=== PATIENT | female | born 1970 | race Caucasian/White ===

== ENCOUNTER 2024-03-24 14:00 | Outpatient (REF) | payer OTHER, SELFPAY ==
--- NOTE | ~2024-03-24 | US_ITS ---
EXAMINATION: US DIAGNOSTIC ULTRASOUND BREAST, RIGHT CLINICAL INFORMATION: 6 month Follow-up oval hypoechoic probably benign circumscribed mass right breast 11:00 axis, 13 cm from the nipple. COMPARISON: RIGHT BREAST ULTRASOUND: 07/28/2023, 01/12/2023, 07/10/2022 (BI-RADS 0). Mammography: 04/24/2023, 11/13/2021, 10/31/2021. TECHNIQUE: Ultrasound of the right breast is performed with real-time dempsey scale imaging and color Doppler. Attention was given to the 11:00 axis lesion 13 cm from the nipple. FINDINGS: There is once again a near anechoic oval circumscribed small mass, wider than tall, situated within a dense Matheus's ligament region, no posterior enhancement or shadowing, no internal color Doppler flow, measuring approximately 6 x 3 x 6 mm. This is unchanged in morphology and characteristics since 07/10/2022. It is slightly smaller in size, previously measuring 7 x 3 x 7 mm. Visually it also appears smaller in size. This finding is benign, and likely represents a tiny fibroadenoma. No further follow-up recommended given decrease in size overall. Results were provided to the patient at time of visit by the technologist. US/US breast RT limited mamm only IMPRESSION: Oval mass being followed at the 11:00 axis of the right breast is slightly smaller and otherwise entirely unchanged. This is a benign finding most likely related to a small fibroadenoma. No further follow-up recommended. Recommend the patient resume routine annual screening mammography. ASSESSMENT: BI-RADS 2 - Benign Findings RECOMMENDATION: 1 year F/U This patient's information was entered into a reminder system with a target due date for their next mammogram.
== END 2024-03-24 14:01 | disposition home or self-care (01) ==
LOC: HO.MAMMO 14:00
PROVIDERS: PCP Nurse Practitioner Family; Visit Provider Obstetrics & Gynecology
DX: N63.11 Unspecified lump in the right breast, upper outer quadrant (principal)
CPT/HCPCS: 76642

== ENCOUNTER → 2024-03-24 14:30 | Outpatient (BNV) | payer OTHER, SELFPAY | PROVIDERS: PCP Nurse Practitioner Family; Visit Provider Radiology Diagnostic Radiology | DX: N63.11 Unspecified lump in the right breast, upper outer quadrant (principal) | CPT/HCPCS: 76642 ==

== ENCOUNTER 2024-05-17 09:32 | Emergency (ER) | payer OTHER, SELFPAY ==
[2024-05-17 09:50] VITALS: BP 123/81; PULSE 82; RESP 16; TEMP 36.8; O2SAT 98; BMI 33.3
[2024-05-17 10:12] LABS: Appearance Urine Clear; Color Urine Yellow; Glucose Urine UA Negative (Negative); Leukocyte Esterase Urine Small (1+) (Negative); Nitrite Urine Negative (Negative); Specific Gravity - Urine <= 1.005 (1.005-1.025); UMIC TRIGGER UACC YES; Urine Blood Small (1+) (Negative); Urine Ketones Negative (Negative); Urine Protein Negative (Neg-Trace)
[2024-05-17 10:39] LABS: Bacteria Urine None Seen (None Seen); Hyaline Casts Urine 0-2 /LPF (0-2); Squamous Epithelial Cell Urine 0-2 /HPF (0-2); UACC Culture Trigger YES; WBC Urine 21-50 /HPF (0-5)
--- NOTE | 2024-05-17 10:51 | ED_ITS ---
HPI - Female Genitourinary General Chief complaint: Urogenital-Female Stated complaint: UTI? Time Seen by Provider: 05/17/24 10:01 Source: patient and RN notes reviewed Mode of arrival: ambulatory Limitations: no limitations History of Present Illness ED Provider: Pretty Elias PA-C HPI Narrative: This is a 53-year-old female, with no known medical problems, who presents emergency department with complaints of suprapubic pressure after urination, and urinary frequency and urgency for the last 2 days. Patient states that she noticed her symptoms 2 days ago however states that yesterday she had the day off and felt like her symptoms have resolved. She states that this morning she awoke with the same suprapubic pressure, frequency and urgency. She denies any fevers, chills, chest pain, shortness breath, nausea, vomiting, or diarrhea. No unusual vaginal discharge or bleeding. No back pain. She is not concerned for any sexually transmitted infections. She states that she had a urinary tract infection about 1 year ago and states that her symptoms feel similar. No other complaints or concerns at this time. MD elicited complaint: dysuria and UTI Onset (ago): day(s) Severity: moderate Female Urogenital Radiation: Suprapubic Consistency: intermittent Vaginal discharge: none Vaginal bleeding: none Urinary symptoms: Dysuria, Urgency, Frequency and Foul Smelling Urine Exacerbating factors: urination Relieving factors: none Associated symptoms: denies other symptoms Treatment prior to arrival: none Sexual activity: No Patient : No Related Data Previous Rx's ?Medication ?Instructions ?Recorded cefuroxime axetil 500 mg tablet 500 mg PO BID 7 days #13 tabs 05/17/24 phenazopyridine 200 mg tablet 200 mg PO TID 5 doses #5 tabs 05/17/24 Allergies Allergy/AdvReac Type Severity Reaction Status Date / Time latex Allergy Anaphylaxis Verified 05/17/24 09:53 morphine Allergy Vomiting Verified 05/17/24 09:53 Review of Systems Review of Systems: Yes all other systems are reviewed and are negative Constitutional: Constitutional: Reports as per [facility] Social History Social History Advance Directives: No Physical Exam Vital Signs: Vital Signs: Last Vital Signs Temp 98.2 F 05/17/24 11:20 Pulse 82 05/17/24 11:20 Resp 18 05/17/24 11:20 BP 123/81 05/17/24 11:20 Pulse Ox 98 05/17/24 09:50 O2 Del Method Room Air 05/17/24 09:50 O2 Flow Rate 98 05/17/24 11:20 BMI result Body Mass Index 33.3 Const: General: cooperative, comfortable and no acute distress Orientation/consciousness: patient oriented x3 Limitations: no limitations HEENT: Head: Yes normal to inspection, Yes normocephalic and Yes atraumatic Ears: hearing grossly normal bilaterally General nose exam: Normal external nose present Face and sinus: Yes normal facial exam Mouth: Normal oral and palatal mucosa present, oropharynx normal and moist mucous membranes Throat: Yes posterior oropharynx normal Eyes: General: appearance normal, both eyes and all related structures Eyelids: Yes eyelids normal Conjunctivae: conjunctivae normal Sclerae: sclerae normal Pupils: Equal, round and reactive pupils present EOM: EOMs intact bilaterally Neck: Neck: Yes normal visual inspection, Yes full ROM and Yes no lymphadenopathy Lymphatic: no lymphadenopathy noted Chest: Chest palpation & inspection: normal inspection of the chest Resp: Effort & Inspection: normal respiratory effort and able to speak in complete sentences Auscultation: clear to auscultation bilaterally, no crackles, no rales, no rhonchi and no wheezes Cardio: Rate: regular rate Rhythm: regular rhythm Heart sounds: S1 normal heart sound present and S2 normal heart sound present GI: Inspection: Yes normal to inspection : Other: Abdomen is soft, nontender, nondistended General: Yes no CVA tenderness Back/Spine/Pelvis: Back: no CVA tenderness Skin: General skin exam: no rashes or lesions noted Trauma: no lacerations or abrasions Wounds: no wounds Neuro: General: patient oriented x3 and moves all extremities Cranial nerves: Yes Equal, round and reactive pupils present Extrem: General: Yes normal to inspection Right upper extremity: normal to inspection Left upper extremity: normal to inspection Right lower extremity: normal to inspection Left lower extremity: normal to inspection Medications Administered Discontinued Medications Generic Name Dose Route Start Last Admin Trade Name Freq PRN Reason Stop Dose Admin Cefuroxime Axetil 500 mg 05/17/24 11:04 05/17/24 11:16 Cefuroxime Axetil 500 Mg Tablet PO 05/17/24 11:05 500 mg ONCE ONE Administration Phenazopyridine HCl 200 mg 05/17/24 11:04 05/17/24 11:16 Phenazopyridine Hcl 200 Mg Tablet PO 05/17/24 11:05 200 mg ONCE ONE Administration Medical Decision Making Medical Decision Making [facility] Narrative: This is a 53-year-old female who presents emergency department with complaints of dysuria, frequency and urgency for the last 2 days. On arrival, vital signs within normal limits. She is nontoxic appearing and speaking in full sentences. She is neurologically intact. Differential diagnoses include urinary tract infection, pyelonephritis, obstructive uropathy, vaginitis-unlikely. Urine was collected, revealing small blood, small leuk esterases, wbc's, symptoms and urine appears to be infected consistent with a urinary tract infection. Discussed findings with patient. Given she has no CVA tenderness, and otherwise is feeling well, no further workup indicated at this time, will treat as urinary tract infection with cefuroxime and Pyridium. Given strict return precautions. She understands and agrees with plan. Patient stable for discharge. Differential Diagnosis Differential Diagnoses: The differential diagnosis associated with the presentation includes See above Lab Data MDM Lab Attestation statement: I reviewed the patient's lab results. Small blood, small leuk esterases, 21-50 urine wbc's consistent with UTI Labs: Lab Results 05/17/24 Range/Units 10:00 Urine Color Yellow Urine Appearance Clear Urine pH 7.0 (5.0-9.0) Ur Specific [place] <= 1.005 (1.005-1.025) Urine Protein Negative (Neg-Trace) mg/dL Urine Glucose (UA) Negative (Negative) mg/dL Urine Ketones Negative (Negative) mg/dL Urine Blood Small (1+) H (Negative) Urine Nitrite Negative (Negative) Ur Leukocyte Esterase Small (1+) H (Negative) Urine RBC 3-5 H (0-2) /HPF Urine WBC 21-50 H (0-5) /HPF Ur Squamous Epith Cells 0-2 (0-2) /HPF Urine Bacteria None Seen (None Seen) Hyaline Casts 0-2 (0-2) /LPF Discharge Plan Discharge Clinical Impression: Urinary tract infection Patient Disposition: Home, Self-Care Instructions: Urinary Tract Infection in Women (ED) Additional Instructions: You were seen in the emergency department due to urinary symptoms. Your urine appears to be infected, please take prescribed antibiotic as directed. We gave you your 1st dose in the department today. I also gave you a dose of Pyridium. Please be advised that Pyridium can cause your urine to be bright orange. This is a normal side effect. Drink plenty of fluids get plenty of rest. We are sending your urine out for further testing, please be advised that we may need to call you to switch your antibiotic. If any new or worsening symptoms occur including but not limited to chest pain, shortness of breath, severe abdominal pain, fevers, chills, back pain, please return for re-evaluation. Prescriptions: New cefuroxime axetil 500 mg tablet 500 mg PO BID 7 Days Qty: 13 0RF phenazopyridine 200 mg tablet 200 mg PO TID Qty: 5 0RF Interventions: ED Discharge Assessment Last Done: 05/17/24 11:20 Discharge Date/Time: 05/17/24 11:21 Print Language: French
[2024-05-17] MEDS: cefuroxime axetiL 500 MG TABLET PO (11:16)
[2024-05-17] MEDS: Phenazopyridine HCL 200 MG TABLET PO (11:16)
[2024-05-17 11:20] VITALS: BP 123/81; PULSE 82; RESP 18; TEMP 36.8
== END 2024-05-17 11:21 | disposition home or self-care (01) ==
PROVIDERS: Emergency Provider Emergency Medicine; PCP Nurse Practitioner Family
DX: N39.0 Urinary tract infection, site not specified (principal); R35.0 Frequency of micturition; R30.0 Dysuria; Z79.899 Other long term (current) drug therapy
CPT/HCPCS: 81001; 87086; 87088; 87186; 99283

== ENCOUNTER 2025-07-31 09:51 | Outpatient (AMB) | payer OTHER, SELFPAY ==
--- OUTSIDE RECORDS SUMMARY | 2025-07-31 09:59 | XMS_ITS | Clinical Summary ---
Author Organization [facility] Address [address] [place] [id number] Phone Care Team Providers Care Electrical Accessories Assembler Name Role Phone Bettina Lutz NP Primary Care Provider [phone] Allergies Active Allergy Reactions Criticality Noted Date Comments Latex Anaphylaxis,Hives,Shortness Of Breath High 06/18/2020 Medications No known medications Active Problems Problem Noted Date Diagnosed Date Women's annual routine gynecological examination 06/18/2020 Surveillance of intrauterine contraception 06/18 Family History Medical History Relation Comments Lung cancer Father Lung cancer Maternal Grandfather Glaucoma Maternal Grandmother Lung cancer Maternal Grandmother Glaucoma Mother Lung cancer Mother Alzheimer's disease Paternal Grandmother Diabetes Paternal Grandmother Breast cancer Sister Glaucoma Sister Hypertension Sister Relation Status Comments Father Maternal Grandfather Maternal Grandmother Mother Paternal Grandfather Other Ruptured AA A Paternal Grandmother Sister Other Masectomy Social History Tobacco Use Types Packs/Day Years Used Date Smoking Tobacco: Never Smokeless Tobacco: Never Alcohol Use Standard Drinks/Week Comments Yes 2 (1 standard drink = 0.6 oz pur e alcohol) Education Answer Date Recorded Are you interested in more education? Not on barbara e 02/13/2023 Are you concerned about learning? Not on file 02/13/2023 No 02/13/2023 No 02/13/2023 Digital Access Answer Date Recorded No 03/17/2023 No 03/17/2023 Reliable internet access at home? Not on file 03/17/2023 Device with a working camera? Not on file Comments No Sex and Gender Information Value Date Recorded Sex Assigned at Not on file Legal Sex Female 2:20 PM EDT Gender Identity Not on file Sexual Orientation Not on file Last Filed Vital Signs Vital Sign Reading Time Taken Comments Blood Pressure 118/80 06/18/2020 10:42 AM EDT Pulse - - Temperature - - Respiratory Rate - - Oxygen Saturation - - Inhaled Oxygen Concentration - - Weight 84.4 kg (186 lb) 06/18/2020 10:42 AM EDT Height 160 cm (5' 3 ) 06/18/2020 10:42 AM EDT Body Mass Index 32.95 06/18/2020 10:42 AM EDT Plan of Treatment Health Maintenance Due Date Last Done Comments Adult Td,Tdap Booster 1972 LIPID PANEL 1972 DEPRESSION SCREENING 1984 HEPATITIS C SCREENING 1990 HIV ONE-TIME SCREENING (18-6 5 YEARS) 1990 SMOKING STATUS SCREENING (On ce After 26 Yrs) 1998 MAMMOGRAM 2012 COLOGUARD 2017 COLONOSCOPY 2017 COLORECTAL CANCER SCREENING 2017 FIT TEST 2017 FOBT 2017 SIGMOIDOSCOPY 2017 VIRTUAL COLONOSCOPY 2017 PNEUMOCOCCAL VACCINES (50+ years) (1 of 1 - PCV) 2022 ZOSTER VACCINES (1 of 2) 2022 PAP SMEAR 06/18/2023 06/18/2020, 06/18/2020 INFLUENZA VACCINE (#1) 2025 08/15/2020 COVID-19 VACCINE (1 - 2023-2 5 season) 2025 HEPATITIS A VACCINES Aged Out No long er eligible based on patient's age to complete this topic HIB VACCINES Aged Out No longer eligi ble based on patient's age to complete this topic MENINGOCOCCAL VACCINES (ACWY) Aged Out No longer eligible based on patient's age to complete this topic MENINGOCOCCAL VACCINES (B) Aged Out N o longer eligible based on patient's age to complete this topic Medical Devices Not on file Procedures Procedure Name Priority Date/Time Associated Diagnosis Comments PAP TEST Routine 06/18/2020 12:00 AM EDT from Last 3 Months or Most Recently Relevant to Health Maintenance Results * Pap Smear (06/18/2020 12:00 AM EDT) 06/18/2020 06/19/2020 9:4 9 AM EDT Narrative SEE NARRATIVE - 06/26/2020 4:23 PM EDT [address] [address] Hydraulic Press Operator: Caroline Palencia MD MINERAL SURVEYOR Cytology Report FINAL DIAGNOSIS A. PAP SMEAR (SUREPATH) CE: SPECIMEN ADEQUACY: Satisfactory for evaluation; transformation zone present. INTERPRETATION: NEGATIVE FOR INTRAEPITHELIAL LESION OR MALIGNANCY. Endometrial cells are present in a woman 45 years of age or older. Endometrial cells after age 45, particularly out of phase or after menopause, may be associated with benign endometrium, hormonal alterations, and, less commonly, endometrial/uterine abnormalities. Clinical correlation is recommended. Electronically Signed Out By: KELECHI Salazar MD(ASCP) By his/her signature above, the pathologist listed as making the Final Diagnosis certifies that he/she has personally reviewed this case and confirmed or corrected the diagnosis. The Pap test is a screening test primarily for squamous cancers and precursors and has associated false-negative and false-positive results. New technologies such as liquid-based preparations may decrease but will not eliminate all false-negative results. Regular sampling and follow-up of unexplained clinical signs and symptoms are recommended to minimize false negative results. CLINICAL HISTORY Date of Last Menstrual Period: Not Provided Menstrual History: Patty-Menopausal Other Clinical Conditions: Screening Pap SPECIMEN SOURCE A: PAP SMEAR (SUREPATH) CE Patient Name: CAROLINE CONNOLLY : 1970 (Age: 49) Sex: F [facility] Location: [facility] Date of Collection: 06/18/2020 Date of Reported: 06/26/2020 16:23 Results to: Reji Lara MD us Reji Lara MD CYTOLOGY ORDERABLES Final Resul t SEE NARRATIVE from Last 3 Months or Most Recently Relevant to Health Maintenance [facility] [address] [place] [address] [place] [address] [place] [address] [place] [address] [place] [address] [place] [address] PPO [employer] Care Teams Electrical Accessories Assembler Relationship Specialty Start Date End Date Bettina Lutz NP [address] [place] [id number] PCP - General 04/25/20 Additional Source Comments The information contained in this document represents components of the legal health record. It is not the complete legal health record.[facility]
--- OUTSIDE RECORDS SUMMARY | 2025-07-31 09:59 | XMS_ITS | Patient Health Record ---
Author Organization [facility] Address [address] [place] [address] Care Team Providers Care Smoking Pipe Liner Name Role Phone Renard Hennessy Primary Care Provider UnavailOdilia Nieto Unavailable [phone] Renard Hennessy Unavailable Unavailable Allergies Allergen (clinical drug ingredient) Drug/Non Drug Allergy documented on EMR Reaction Allergy Type Onset Date Status morphine Morphine Unknown Drug Allergy Active Latex Unknown Drug Allergy Active Reason For Referral No Information Social History Tobacco Use: Social History Observation Description Date Details (start date - stop date) Never Smoker NA - NA Tobacco Use/Smoking Question Answer Notes Are you a: nonsmoker Additional Findings: Tobacco Non-User Current no n-smoker Alcohol Screen Question Answer Notes Did you have a drink contain ing alcohol in the past year? Yes How often did you have a dri nk containing alcohol in the past year? 2 to 4 times a month (2 points) How many drinks did you have on a typical day when you were drinking in the past year? 1 or 2 drinks (0 point) How often did you have 6 or more drinks on one occasion in the past year? Never (0 point) Points 2 Interpretation Negative Tobacco use other than smoking: Question Answer Notes Are you an other tobacco user? No Plan Of Treatment Pending Test Test Name Order Date X ray : Foot, left 2V 12/21/2017 X ray : Foot, right 2V 12/21/2017 Insurance Providers Payer Name Payer Address Payer Phone Subscriber Number Group Number Insured Name Patient Relationship to Insured Coverage Start Date Coverage End Date [facility] [address] [place], [place] [address] [place] [id number] Caroline Frias Self - patient is the insured Medical (General) History Medical History History ICD Code Measles Mumps Chicken pox Surgical History Surgery Date(Month/Year) 1999,2001 Tumor removal breast 1998
--- NOTE | 2025-07-31 10:04 | MHC.PC.OV ---
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 Intake Note: New patient to establish care Blue Prints Trimmer Required: No Allergies latex Allergy (Verified 07/31/25 10:27) Anaphylaxis morphine Allergy (Verified 07/31/25 10:27) Vomiting Medication List - Last Reviewed 07/31/25 by Moni Marrero MA No Known Home Meds Tobacco use date assessed: 07/31/25 Dental Screening Dental Screen Date: 07/31/25 Did you have a dental visit in the last 12 months?: Yes Did you have a dental problem in the last 6 months where you did not have access to dental care?: No Was dental information given to patient?: Patient has dentist HPI HPI Comments History of Present Illness Details 54 y/o F with obesity, eczema, perimenopause, fhx of colon ca & breast ca (sister) 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 No medical records, previous PCP [facility] Perimenopausal Symptoms: - Hot flashes and cognitive issues - Weight gain, mood changes - Lack of estrogen therapy from prior ELECTRONIC HEAT SEAL OPERATOR visit Plantar Fasciitis: - Recurrent heel/arch pain - Waxing/waning intensity, limits cardio activity - Self-managed with stretching, footwear changes Obesity: - BMI 34.4, exercises frequently Eczema: - Hand dryness due to work - Worsened in winter Family History of Breast and Colon Cancer: - Breast and colon cancer in sister - Maternal grandmother with breast cancer Social History - Exercises 3-4 times a week - 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 - Musculoskeletal: Reports history of plantar fasciitis. - Neurologic: Reports cognitive symptoms such as forgetfulness. - Hematologic: Denies anemia. - Endocrine: Reports weight gain despite regular exercise. - Gynecologic: Reports perimenopausal symptoms, including irregular periods and hot flashes. Physical Exam General: Well developed, well nourished, in no acute distress. Appears stated age. Head: Normocephalic, atraumatic. Eyes: Pupils are equal, round and reactive to light and accommodation. Conjunctivae are clear. Scleras nonicteric bilat. Vision grossly normal. Ears: TMs clear AU, EACS WNL Nose: Patent, without discharge. Neck: No carotid bruit bilat. Supple, no adenopathy or thyromegaly. Breast: Edu on SBE. History of benign breast tumors. Lungs: Clear to auscultation bilaterally. No rales, rhonchi or wheeze noted. Good air flow in all nielsen. Heart: Regular rate and rhythm. No murmurs, click, rubs or gallops are noted. Abdomen: Bowel sounds present in all quadrants. The abdomen is soft, nontender, with no masses or organomegaly noted. No hernias are noted. : Deferred. Reviewed recommendations for routine ELECTRONIC HEAT SEAL OPERATOR. Pulses: Peripheral pulses are equal and palpable bilaterally. Extremities: No clubbing, cyanosis nor edema is noted. Neurologic: Gait and station normal. Cranial Nerves 2-12 intact. Motor strength grossly symmetrical and intact. No sensory loss. Balance normal. Skin: No rashes, ulcers, or lesions noted. Turgor is good. Skin color is good. Hair and nails are without abnormalities. Psych: Normal eye contact, affect and mood appropriate, and normal interactions. Patient is alert and appropriate to context. Results Pending Discussion Notes We discussed the management of perimenopausal symptoms and the potential referral to a specialist for hormonal therapy evaluation. I recommended Yara Caldwell for CALCULUS TUTOR concerns related to menopause management. We also reviewed the history of plantar fasciitis and referral to podiatry for in-depth evaluation. Additionally, we discussed the importance of maintaining proactive breast health screening, especially given the patient's family history of breast cancer. A GI referral for colonoscopy was recommended for risk management and compliance with screening guidelines. The patient was advised on available resources, including the [facility] for communication. Patient was given time to ask questions. All questions were answered to their satisfaction. Assessment and Plan 1. Perimenopausal Symptoms - Referral to Yara Caldwell for perimenopausal symptoms management. 2. Plantar Fasciitis - Podiatry referral for advanced care. 3. Obesity - Support continued physical activity. 4. Eczema - Apply moisturizers regularly. 5. Family History of Breast and Colon Cancer - Breast and GI referrals initiated. Referral to Dr. Ravi for high-risk breast screening due to family history and fibrocystic breasts. Patient Instructions - Follow up with Yara Caldwell for perimenopausal care. - Visit podiatry for foot pain concerns. - Schedule your colonoscopy. - Use moisturizers to manage your eczema. - Exercise regularly and maintain a healthy diet. - RTO 1 year CPE sooner as needed. Consent Consent was obtained from the patient for referral to a high-risk breast screening program and colonoscopy enrollment, given family history implications. I ensured understanding of the importance of these screenings, acknowledging her potential risk. Consent was also secured for sharing contact with specialists for perimenopausal and podiatric evaluation, emphasizing the potential benefit of therapeutic interventions discussed during the visit. The patient agreed to use the hospital's communication platform for ongoing care coordination. Patient was informed and verbally consented to the use of an ambient scribe for clinic note documentation during this visit. An additional 30 minutes was spent addressing the problem(s) noted at todays visit. This includes time spent before the visit reviewing the chart, time spent during the visit, and time spent after the visit on documentation reviewing laboratory results, diagnostic imaging, medications, performing a medically necessary evaluation, counseling on diagnoses, care coordination, ordering appropriate tests, ordering appropriate medications, review of tests performed by other providers, reporting test results with the patient, communication with other healthcare providers. [facility] Medical History (Updated 07/31/25 @ 10:53 by Ramona Parmar, [facility]) Bilateral fibroadenomas of breasts Eczema Hx of mammogram (~2024) Plantar fasciitis Surgical History (Updated 07/31/25 @ 10:22 by Moni Marrero MA) Hx of cholecystectomy Hx of colonoscopy (~2020) Previous section Family History (Updated 07/31/25 @ 10:41 by Moni Marrero MA) Father High cholesterol Lung cancer Paternal Grandmother Diabetes Mother Cardiovascular disease Lung cancer Paternal Grandfather Cardiovascular disease Maternal Grandmother Lung cancer Maternal Grandfather Lung cancer Sister Breast cancer Colon cancer Social History (Updated 07/31/25 @ 10:19 by Moni Marrero MA) Household Members: Spouse and Children Both parents involved: No Caregiver staying overnight: No Housing: House Are you a primary home health care coordinator to a significant other at home: Yes Do you presently have visiting nurse or other home services: No 75 years or older and lives alone: No Alcohol intake: current Alcohol intake frequency: a few times a month Patient Tobacco Use Status: Never used Tobacco e-Cigarette/Vaping Use: Never Used Second Hand Smoke Exposure: No service: No Current occupational status: 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 1. Little interest or pleasure in doing things: not at all 2. Feeling down, depressed, or hopeless: not at all 3. Trouble falling or staying asleep, or sleeping too much: several days 4. Feeling tired or having little energy: not at all 5. Poor appetite or overeating: not at all 6. Feeling bad about yourself - or that you are a failure or have let yourself or your family down: not at all 7. Trouble concentrating on things, such as reading the newspaper or watching television: not at all 8. Moving or speaking so slowly that other people could have noticed. Or the opposite - being so fidgety or restless that you have been moving around a lot more than usual: not at all 9. Thoughts that you would be better off or of hurting yourself in some way: not at all Total score: 1 Depression Screening Interpretation: Negative Depression Screening Done: Yes 27519 - PHQ-9 Billing: Yes Source: Developed by Drs. Reji Evans, Caitlin Mccartney, Jeffrey Cerna and colleagues, with an educational lorena from [employer]. Thrive Questionnaire Date Thrive assessed: 07/31/25 I am a: Patient What is your living situation today?: I have a steady place to live Within the past 12 months, did the food you bought not last and you didn't have the money to get more?: Never true Within the past 12 months, did you worry whether your food would run out before you got money to buy more?: Never true Do you have trouble paying for medicines?: No Do you have trouble getting transportation to medical appointments?: No Do you have trouble paying your heating and electricity bill?: No Do you have trouble taking care of your child, family member or friend?: No Do you have trouble with day-to-day activities such as bathing, preparing meals, shopping, managing finances, etc.?: No Are you currently unemployed and looking for a job?: No Are you interested in more education?: No Please select the resources that you would like help with: None Currently or been in a relationship where the following occur: No concerns reported THRIVE Score: 0 AUDIT C Alcohol Use Questionnaire (AUDIT-C) 1. How often do you have a drink containing alcohol?: 2-3 times a week 2. How many drinks containing alcohol do you have on a typical day when you are drinking?: 1 or 2 3. How often do you have six or more drinks on one occasion?: Never Total Score: 3 Score Reviewed/Action Taken: Yes JACKIE-7 AMB Questionnaire JACKIE-7 Date JACKIE - 7 assessed: 07/31/25 Feeling nervous, anxious, or on edge: 0 = Not at all Not being able to stop or control worryin = Not at all Worrying too much about different things: 0 = Not at all Trouble relaxin = Not at all Being so restless that it is hard to sit still: 0 = Not at all Becoming easily annoyed or irritable: 1 = Several days Feeling afraid as if something awful might happen: 0 = Not at all Total JACKIE-7 score (0-4 normal; 5-9 mild; 10-14 moderate; 15-21 severe): 1 Source: Developed by Drs. Reji Evans, Caitlin Mccartney, Jeffrey Cerna and colleagues, with an educational lorena from [employer]. JACKIE-7 Assessment Billing JACKIE-7 Assessment Tool: JACKIE-7 Assessment 89604 Physical exam (Primary Care) Vital Signs: Last Vital Signs Temp 97.2 F 07/31/25 10:16 Pulse 68 07/31/25 10:16 Resp 12 07/31/25 10:16 BP 118/72 07/31/25 10:16 Pulse Ox 98 07/31/25 10:16 Oxygen Delivery Method Room Air 07/31/25 10:16 BMI result Body Mass Index 34.4 BMI Assessment/Plan discussion: High BMI High, discussed plan: lifestyle Tobacco/Smoking Status: Tobacco use Status Tobacco use date assessed 07/31/25 07/31/25 10:09 Patient Tobacco Use Status Never used Tobacco 07/31/25 10:19 e-Cigarette/Vaping Use Never Used 07/31/25 10:19 PHQ-9: PHQ-9 Score PHQ-9: Total score 1 07/31/25 10:09 Depression Screening Interpretation: Negative Thrive Assessment: Date of Thrive Assessment Date Thrive assessed 07/31/25 07/31/25 10:09 Currently or been in a relationship where the following occur: No concerns reported Coding Level of Care Code New Pt Level 3 (34930) New Pt Prev Care 40-64y(80733) Diagnoses Encounter to establish care with new provider Z76.89 Obesity (BMI 30-39.9) E66.9 Perimenopause N95.1 Plantar fasciitis M72.2 Family history of colon cancer Z80.0 Family history of breast cancer Z80.3 Bilateral fibrocystic breast changes N60.11; N60.12 Laboratory exam ordered as part of routine general medical examination Z00.00 Influenza vaccination declined Z28.21 Tetanus, diphtheria, and acellular pertussis (Tdap) vaccination declined Z28.21 Encounter for general adult medical examination without abnormal findings Z00.00 Additional Codes JACKIE-7 Assessment Billing - JACKIE-7 Assessment Tool: JACKIE-7 Assessment 64384 ([id number]) PHQ-9 - 80223 - PHQ-9 Billing: Yes ([id number]) Assessment & Plan Assessment & Plan (1) Encounter to establish care with new provider: Code(s): Z76.89 - Persons encountering health services in other specified circumstances (2) Obesity (BMI 30-39.9): Code(s): E66.9 - Obesity, unspecified Category: Medical (3) Perimenopause: Code(s): N95.1 - Menopausal and female climacteric states Category: Medical (4) Plantar fasciitis: Code(s): M72.2 - Plantar fascial fibromatosis Category: Medical (5) Family history of colon cancer: Comment: sister Code(s): Z80.0 - Family history of malignant neoplasm of digestive organs Category: Medical (6) Family history of breast cancer: Comment: sister Code(s): Z80.3 - Family history of malignant neoplasm of breast Category: Medical (7) Bilateral fibrocystic breast changes: Code(s): N60.11 - Diffuse cystic mastopathy of right breast; N60.12 - Diffuse cystic mastopathy of left breast Category: Medical (8) Laboratory exam ordered as part of routine general medical examination: Code(s): Z00.00 - Encounter for general adult medical examination without abnormal findings Category: Medical (9) Influenza vaccination declined: Code(s): Z28.21 - Immunization not carried out because of patient refusal Category: Medical (10) Tetanus, diphtheria, and acellular pertussis (Tdap) vaccination declined: Code(s): Z28.21 - Immunization not carried out because of patient refusal Category: Medical (11) Encounter for general adult medical examination without abnormal findings: Onset Date: ~07/31/25 Code(s): Z00.00 - Encounter for general adult medical examination without abnormal findings Category: Medical Plan . Orders: Orders Comprehensive Met. Panel Today Z00.00 - Encounter for general adult medical examination without abnormal findings Lipid Panel Today Z00.00 - Encounter for general adult medical examination without abnormal findings Microalbumin, Random (w Creat) Today Z00.00 - Encounter for general adult medical examination without abnormal findings Vitamin D 25-OH Total Today Z00.00 - Encounter for general adult medical examination without abnormal findings MM tomosynthesis screening BI Today Z12.31 - Encounter for screening mammogram for malignant neoplasm of breast Complete Blood Count no Diff Today Z00.00 - Encounter for general adult medical examination without abnormal findings Hemoglobin A1c Today Z00.00 - Encounter for general adult medical examination without abnormal findings TSH reflex Free T4 Today Z00.00 - Encounter for general adult medical examination without abnormal findings Vitamin B12 and Folate Today Z00.00 - Encounter for general adult medical examination without abnormal findings Referrals Breast Surgery Referral N60.11 - Diffuse cystic mastopathy of right breast, N60.12 - Diffuse cystic mastopathy of left breast, Z80.3 - Family history of malignant neoplasm of breast CALCULUS TUTOR Referral N95.1 - Menopausal and female climacteric states Podiatry Referral M72.2 - Plantar fascial fibromatosis Gastroenterology Referral Z12.11 - Encounter for screening for malignant neoplasm of colon, Z80.0 - Family history of malignant neoplasm of digestive organs Patient Instructions: Walk-In Care (Urgent Care): We Make it Easy Walk-in for urgent medical issues such as: ? Seasonal Allergies ? Insect Bites ? Cough ? Diarrhea ? Acute Asthma Attacks ? Back, Knee or Joint Pain ? Ear Infection ? Fever without a Rash ? Headaches ? Nausea ? [place] Eye, Rash or Skin Irritation ? Sore Throat ? Sports Physicals ? Vomiting Most insurances are accepted. Patients do not need to be part of the [facility] to seek care at the walk-in clinic. Locations [address] [place] [address] Open Thursday through Thursday 8am-5pm *Hours may vary due to staffing availability. To confirm Walk-In Care hours please call. [facility] , [place] [address] ? [phone] [facility] [place] provides services to ages 18 and over. Open Thursday-Thursday: 7 a.m. to 5 p.m. and Thursday: 9 a.m. to 3 p.m.* *Hours may vary due to staffing availability. To confirm Walk-In Care hours in [place], please call [phone]. [address] [place] [address] ? [phone] [facility] [place] [facility] [place] provides services to ages 12 and over. Open Thursday-Thursday: 8 a.m. to 5 p.m. Hours may vary due to staffing availability. To confirm Walk-In Care hours in [place], please call [phone]. LABORATORY SERVICES: [facility] ? Primary Location [address] [place] [address] Thursday through Thursday 6:00 AM ? 5:00 PM Thursday 7:00 AM ? 11:00 AM* [phone] The [facility] is centrally located near the front entrance of the Medical Center for easy outpatient access. Convenient parking is provided for outpatients. *Hours may vary due to staffing availability. To confirm Laboratory hours for any location, please call [phone]. Offsite Location For your convenience, we offer offsite laboratory draw stations at the following locations: [address] [place] [address] [address], [address], [place] Thursday through Thursday 7:30 AM ? 1:00 PM* [phone] *Hours may vary due to staffing availability. To confirm Laboratory hours for any location, please call [phone]. [place] ? [facility] [address] [facility], [place] Thursday through Thursday 6:00 AM ? 3:30 PM* Thursday 6:30 AM ? 3 PM* [phone] *Hours may vary due to staffing availability. To confirm Laboratory hours for any location, please call [phone]. [address] [facility] Thursday through Thursday 7:30 AM ? 4:00 PM* [phone] *Hours may vary due to staffing availability. To confirm Laboratory hours for any location, please call [phone] [place] [address] Thursday through 9:00 AM ? 4:00 PM* *Hours may vary due to staffing availability. To confirm Laboratory hours for any location, please call [phone]. Appointments are not necessary. Walk-ins are welcome. Like all the departments throughout the [facility], our Lab undergoes frequent reviews to ensure the quality and accuracy of test results, and our staff takes special pride in its status as a nationally accredited facility. Patient Portal: [facility] ONE PATIENT. ONE RECORD. BETTER CARE. [facility] has a fully integrated, cutting-edge mobile electronic health information system that has revolutionized the way we care for our patients and manage our organization. This system improves communication and coordination enabling us to provide safe, higher-quality care, and an overall positive experience for staff and patients. Our first priority, as always, is to deliver the highest quality care possible. The system is running in the background supporting that priority. This portal is for all [facility] services and practices. If you are experiencing any technical difficulties with enrolling or logging into the Patient Portal please complete the [facility] Patient Portal Technical Support Form. [facility] now offers a new secure on-line interactive tool for patients to review their health information ? ?Patient Portal. This interactive web portal will enable patients and their families to take an active role in their care by providing easy, secure access to their health information via the internet. The Patient Portal provides patients with instant access to their health information, including laboratory results, medications, allergies, demographic information, visit history, and more. In addition to managing their own care, parents and health care proxies with authorized consent will appreciate the ability to access the records of those individuals for whom they provide care. Please note: if you wish to gain access (Proxy) to another patient?s portal, you will be required to come to the Medical Records Department in person at [facility]. Both the patient giving proxy access and the proxy will need to provide photo identification and complete the appropriate authorization. The Patient Portal also allows track their appointments online. The [facility] Patient Portal also saves patients time by allowing them to submit updates to their demographic and contact information prior to their visits. Portal email notifications will also alert patients to any new activity on their portal, such as test results and new appointments. In order to initially enroll in the [facility] Patient Portal, you will need to enter some required information including the following: your [facility] Medical Record number your personal home email address name date of Please note: In order to enroll in the [facility] Patient Portal, we need to have your email address on file in your electronic medical record. ?The email address needs to be specific for one person (yourself) in order for your Portal enrollment to be successful. ?You can update your email address in person with our Registration staff when you are registering for a hospital visit. ?Otherwise, you will need to come to the Health Information Management (Medical Records) Department at [facility]. ?We are open from Thursday ? Thursday from 7:30 a.m. ? 4:30 p.m. ?You will be required to present a photo id. Once you have successfully enrolled in the Patient Portal, you will receive a one-time user id and password for the Portal, sent to your email address. ?This will allow you to log into the Patient Portal within 99 hrs and reset your own logon id and password, and define personal security questions. ?Once your permanent login and password have been set, you can log into the [facility] Patient Portal at any time via the blue button above or from the Portal Logon button on any page of the [facility] website. [facility] and [facility] encourage all of our patients to enroll in Patient Portal as it presents a valuable opportunity for patients and their families to actively participate in their care and stay healthy Welcome to [facility]. ?We look forward to working with you. Health screenings for women You should visit your health care provider from time to time, even if you are healthy. The purpose of these visits is to: Screen for medical issues Assess your risk for future medical problems Encourage a healthy lifestyle Update vaccinations and other preventive care services Help you get to know your provider in case of an illness Information Even if you feel fine, you should still see your provider for regular checkups. These visits can help you avoid problems in the future. For example, the only way to find out if you have high blood pressure is to have it checked regularly. High blood sugar and high cholesterol levels also may not have any symptoms in the early stages. A simple blood test can check for these conditions. There are specific times when you should see your provider or receive specific health screenings. The [place] Preventive Services Task Force publishes a list of recommended screenings. Below are screening guidelines for women ages 18 to 39. BLOOD PRESSURE SCREENING Your blood pressure should be checked at least once every 3 to 5 years if: Your blood pressure is in the normal range (top number less than 120 mm Hg and bottom number less than 80 mm Hg) You don't have risk factors for high blood pressure Ask your provider if you need your blood pressure checked more often if: The top number is 120 to 129 mm Hg or the bottom number is 70 to 79 mm Hg You have diabetes, heart disease, kidney problems, are overweight, or have certain other health conditions You have a first-degree relative with high blood pressure You are Black You had high blood pressure during a If the top number is 130 mm Hg or greater or the bottom number is 80 mm Hg or greater, this is considered stage 1 hypertension. Schedule an appointment with your provider to learn how you can reduce your blood pressure. Watch for blood pressure screenings in your area. Ask your provider if you can stop in to have your blood pressure checked. BREAST CANCER SCREENING Experts do not agree about the benefits of breast self-exams in finding breast cancer or saving lives. Talk to your provider about what is best for you. A screening mammogram is not recommended for most women under age 40. Your provider may discuss and recommend mammograms, MRI scans, or ultrasounds if you have an increased risk for breast cancer, such as: A mother or sister who had breast cancer at a young age (most often starting screening earlier than the age the close relative was diagnosed) You carry a high-risk genetic marker CERVICAL CANCER SCREENING Cervical cancer screening should start at age 21 years unless your provider advises otherwise. After the first test: Women ages 21 through 29 should have a Pap test every 3 years. Exoprts do not agree on whether HPV testing is recommended for this age group. Women ages 30 through 65 should be screened with either a Pap test every 3 years or the HPV test every 5 years or both tests every 5 years (called cotesting ). Women who have been treated for precancer (cervical dysplasia) should continue to have Pap tests for 20 years after treatment or until age 65, whichever is longer. If you have had your uterus and cervix removed (total hysterectomy), and you have not been diagnosed with cervical cancer or precancer (high grade cervical neoplasia), you do not need cervical cancer screening. CHOLESTEROL SCREENING Cholesterol screening should begin at: Age 45 for women with no known risk factors for coronary heart disease Age 20 for women with known risk factors for coronary heart disease Repeat cholesterol screening should take place: Every 5 years for women with normal cholesterol levels More often if changes occur in lifestyle (including weight gain and diet) More often if you have diabetes, heart disease, kidney problems, or certain other conditions DIABETES SCREENING You should be screened for diabetes starting at age 35 and then repeated every 3 years if you have no risk factors for diabetes. Screening may need to start earlier and be repeated more often if you have other risk factors for diabetes, such as: You have a first degree relative with diabetes. You are overweight or have obesity. You have high blood pressure, prediabetes, or a history of heart disease. Screening for diabetes should be done if you are planning to become and you are overweight and have other risk factors such as high blood pressure. DENTAL EXAM Go to the dentist once or twice every year for an exam and cleaning. Your dentist will evaluate if you need more frequent visits. EYE EXAM Have an eye exam every 5 to 10 years before age 40. If you have vision problems, have an eye exam every 2 years or more often if recommended by your provider. You should have an eye exam that includes an examination of your retina (back of your eye) at least every year if you have diabetes. IMMUNIZATIONS Commonly needed vaccines include: Flu shot: get one every year. COVID-19 vaccine: ask your provider what is best for you. Tetanus-diphtheria and acellular pertussis (Tdap) vaccine: have one at or after age 19 as one of your tetanus-diphtheria vaccines if you did not receive it as an adolescent. Tetanus-diphtheria: have a booster (or Tdap) every 10 years. Varicella vaccine: receive 2 doses if you never had chickenpox or the varicella vaccine. Hepatitis B vaccine: receive 2, 3, or 4 doses, depending on your exact circumstances. Measles, mumps, and rubella (MMR) vaccine: receive 1 to 2 doses if you are not already immune to MMR. Your provider can tell you if you are immune. Ask your provider about the human papillomavirus (HPV) vaccine if: You have not received the HPV vaccine in the past You have not completed the full vaccine series (you should catch up on this shot) Ask your provider if you should receive other immunizations if you have certain health problems that increase your risk for some diseases such as pneumonia. INFECTIOUS DISEASE SCREENING Women who are sexually active should be screened for chlamydia and gonorrhea up until age 25. Women 25 years and older should be screened for chlamydia and gonorrhea if at high risk. Screening for hepatitis C: All adults ages 18 to 79 should get a one-time test for hepatitis C. people should be screened at every . Screening for human immunodeficiency virus (HIV): All people ages 15 to 65 should get a one-time test for HIV. Depending on your lifestyle and medical history, you may also need to be screened for infections such as syphilis and HIV, as well as other infections. PHYSICAL EXAM All adults should visit their provider from time to time, even if they are healthy. The purpose of these visits is to: Screen for disease Assess your risk of future medical problems Encourage a healthy lifestyle Update your vaccinations and other preventive care services Maintain a relationship with a provider in case of an illness Your height, weight, and BMI should be checked at every exam. During your exam, your provider may ask you about: Depression and anxiety Diet and exercise Alcohol and tobacco use Safety issues, such as using seat belts, smoke detectors, and intimate partner violence Your medicines and risk for interactions SKIN SELF-EXAM Your provider may check your skin for signs of skin cancer, especially if you're at high risk, such as if you: Have had skin cancer before Have close relatives with skin cancer Have a weakened immune system OTHER SCREENING Talk with your provider about colon cancer screening if you have a strong family history of colon cancer or polyps, or if you have had inflammatory bowel disease or polyps yourself. Routine bone density screening of women under 40 is not recommended.
[2025-07-31 10:16] VITALS: BP 118/72; PULSE 68; RESP 12; TEMP 36.2; O2SAT 98; BMI 34.4
== END 2025-07-31 10:50 | disposition home or self-care (01) ==
LOC: HO.HMCFM 09:51
PROVIDERS: PCP Nurse Practitioner Family; Visit Provider Nurse Practitioner Family
DX: Z00.00 Encounter for general adult medical examination without abnormal findings (principal); E66.9 Obesity, unspecified; Z68.34 Body mass index [BMI] 34.0-34.9, adult; Z76.89 Persons encountering health services in other specified circumstances; N95.1 Menopausal and female climacteric states; N60.11 Diffuse cystic mastopathy of right breast; M72.2 Plantar fascial fibromatosis; Z80.0 Family history of malignant neoplasm of digestive organs; Z80.3 Family history of malignant neoplasm of breast; N60.12 Diffuse cystic mastopathy of left breast; Z28.21 Immunization not carried out because of patient refusal

== ENCOUNTER 2025-07-31 09:51 | Outpatient (REF) | payer OTHER, SELFPAY ==
[2025-07-31 14:24] LABS: Hematocrit 38.8 % (37.0-47.0); Hemoglobin 12.6 g/dl (12.0-16.0); Mean Corpuscular HGB Conc 32.5 g/dl (31.0-35.0); Mean Corpuscular Hemoglobin 31.3 pg (27.0-33.0); Mean Corpuscular Volume 96.5 fL (80.0-98.0); NRBC Abs Auto 0.000 X10*3/uL (0.0-0.012); NRBC Pct Auto 0.0 /100WBC (0.0-0.2); Platelet Count 336 X10*3/uL (160-400); Red Blood Count 4.02 X10*6/uL (4.20-5.50); White Blood Count 8.2 X10*3/uL (4.8-10.8)
[2025-07-31 14:34] LABS: Total Hemoglobin (HGBA1C) 3306.9651 umol/L
[2025-07-31 14:47] LABS: Alanine Aminotransferase 20 U/L (0-31); Albumin Level 4.5 g/dL (3.5-5.0); Alkaline Phosphatase 69 U/L (39-117); Anion Gap 12 (12-20); Aspartate Amino Transferase 26 U/L (5-31); Blood Urea Nitrogen 13 mg/dL (9-16); Calcium 9.1 mg/dL (8.4-10.2); Carbon Dioxide 28 mmol/L (22-29); Chloride 106 mmol/L (96-108); Cholesterol 289 mg/dL (<200); Estimated Glomerular Filt Rate > 60; HDL Cholesterol 71 mg/dL (>40); Potassium 4.1 mmol/L (3.3-5.1); Sodium 142 mmol/L (135-145); Total Protein 7.1 g/dL (6.5-8.0); Triglycerides 140 mg/dL (<150)
[2025-07-31 15:07] LABS: Folate 9.9 ng/mL (> or = 4.0); Vitamin B12 456 pg/mL (200-900)
== END 2025-07-31 09:52 | disposition home or self-care (01) ==
LOC: HO.WFDLDS 09:51
PROVIDERS: PCP Nurse Practitioner Family; Visit Provider Nurse Practitioner Family
DX: Z00.00 Encounter for general adult medical examination without abnormal findings (principal); N95.1 Menopausal and female climacteric states; R23.2 Flushing; M72.2 Plantar fascial fibromatosis; L30.9 Dermatitis, unspecified; N60.11 Diffuse cystic mastopathy of right breast; N60.12 Diffuse cystic mastopathy of left breast; E66.9 Obesity, unspecified; Z76.89 Persons encountering health services in other specified circumstances; Z80.0 Family history of malignant neoplasm of digestive organs; Z80.3 Family history of malignant neoplasm of breast; Z28.21 Immunization not carried out because of patient refusal; Z68.34 Body mass index [BMI] 34.0-34.9, adult; Z13.1 Encounter for screening for diabetes mellitus
CPT/HCPCS: 36415; 80053; 80061; 82306; 82570; 82607; 82746; 83036; 84443; 85027; 96127

== ENCOUNTER 2025-07-31 11:17 | Outpatient (REF) | payer OTHER, SELFPAY | END 2025-07-31 11:18 | disposition home or self-care (01) | LOC: HO.LAB 11:17 | PROVIDERS: Visit Provider Nurse Practitioner Family | DX: Z13.89 Encounter for screening for other disorder (principal) ==

== ENCOUNTER 2025-08-25 08:13 | Outpatient (REF) | payer OTHER, SELFPAY ==
--- NOTE | ~2025-08-25 | XR_ITS ---
EXAMINATION: XR FOOT, RIGHT CLINICAL INFORMATION: M79.671 - Pain in right foot COMPARISON: None available. TECHNIQUE: AP, lateral, and oblique views of the right foot. FINDINGS: No fracture, dislocation, or suspicious bone lesion. Normal bone mineralization. Normal alignment. There is a normal plantar arch. Joint spaces are preserved. No significant arthropathy. There is an os peroneum. There are moderate-sized plantar and dorsal calcaneal spurs. Soft tissues appear normal. XR/XR foot RT min 3V IMPRESSION: 1. No acute bony or soft tissue abnormality of the right foot. 2. Moderate-sized plantar and dorsal calcaneal spurs. Electronically signed by: Johnny Norris MD 08/25/2025 12:19 PM KATE MONSIVAIS
== END 2025-08-25 08:14 | disposition home or self-care (01) ==
LOC: HO.XRAY 08:13
PROVIDERS: PCP Nurse Practitioner Family; Visit Provider Student in an Organized Health Care Education/Training Program
DX: M72.2 Plantar fascial fibromatosis (principal); M77.31 Calcaneal spur, right foot
CPT/HCPCS: 73630

== ENCOUNTER 2025-08-25 08:13 | Outpatient (AMB) | payer OTHER, SELFPAY ==
--- OUTSIDE RECORDS SUMMARY | 2025-08-25 08:21 | XMS_ITS | Patient Health Record ---
[facility] Address [address] [place] [address] Care Team Providers Care Game Technician Name Role Phone Renard Hennessy Primary Care Provider UnavailOdilia Nieto Unavailable [phone] Renard Hennessy Unavailable Unavailable Allergies Allergen (clinical [...] Insured Coverage Start Date Coverage End Date [facility] [address] [place], [place] [address] [id number] Caroline Frias Self - patient is the insured Medical (General) History Medical History History ICD Code Measles Mumps Chicken pox Surgical History Surgery Date(Month/Year) 1999,2001 Tumor removal breast 1998
--- OUTSIDE RECORDS SUMMARY | 2025-08-25 08:21 | XMS_ITS | Clinical Summary ---
Author Organization [facility] Address [address] [place] [id number] Phone Care Team Providers Care Cellophane Worker Name Role Phone Bettina Lutz NP Primary Care Provider [phone] Allergies Active Allergy Reactions Criticality Noted Date [...] (#1) 2025 08/15/2020 COVID-19 VACCINE (1 - 2024-2 6 season) 2025 RSV VACCINE (1 - 1-dose 75+ series) 2047 HEPATITIS A VACCINES Aged Out No long [...] SEE NARRATIVE - 06/26/2020 4:23 PM EDT [address] [address] Print Line Supervisor: Caroline Palencia MD LIGHT RAIL SIGNAL TECHNICIAN Cytology Report FINAL DIAGNOSIS A. PAP SMEAR [...] : 1970 (Age: 49) Sex: F Institution: [facility] Location: [facility] Date of Collection: 06/18/2020 Date of Reported: 06/26/2020 16:23 Results to: Reji Lara MD us Reji Lara MD CYTOLOGY ORDERABLES Final Resul t SEE NARRATIVE from Last 3 Months or Most Recently Relevant to Health Maintenance [place] [address] [place] [address] [place], [place] [address]S Member Subscriber Plan / Payer (Ef fective 2019-Present) Name:Caroline Connolly Relation to Subscriber:Self Name:Caroline Connolly Payer ID:Not on file Type:PPO Address: [address] [place], [place] [address] [place], [place] [address] [place], [place] [address]S Member Subscriber Plan / Payer (Ef fective 2019-Present) Name:Caroline Connolly Relation to Subscriber:Self Name:Caroline Connolly Payer ID:Not on file Type:PPO Address: [address] [place] [address] PPO [employer] Care Teams Cellophane Worker Relationship Specialty Start Date End Date Bettina Lutz NP [address] [place] [id number] PCP - General 04/25/20 Additional Source Comments The information contained in this document represents components of the legal health record. It is not the complete legal health record.[facility]
[2025-08-25 08:34] VITALS: BMI 32.6
--- NOTE | 2025-08-25 08:34 | MHC.OFFVIS ---
Vital Signs 08/25/25 08:34 Height 5 ft 3 in Weight 184 lb BMI 32.6 Intake Visit Reasons: plantar fascial fibromatosis Intake Note: Caroline is a 54 year old female who presents today as a new patient for an evaluation of her right foot plantar fasciitis. Pain is located in her heel and arch of the foot and has been going on for about 8 months. Patient reports she has tried massaging the foot, inserts, supportive shoe wear, ibuprofen PRN, and stretching exercises and has found slight relief. Allergies latex Allergy (Verified 07/31/25 10:27) Anaphylaxis morphine Allergy (Verified 07/31/25 10:27) Vomiting HPI Comments Details: The patient is a 54-year-old female with a past medical history as seen below presenting with right foot pain primarily to the plantar and posterior aspects of the heel. She reports this is the third occurrence of plantar fasciitis in her lifetime, with the previous episodes occurring years ago. The current episode has been exacerbated by her long 12-hour shifts, which involve prolonged standing and limited opportunities to sit. The patient has attempted various interventions, including wearing supportive footwear and using inserts, which have provided some relief. She has also tried night splints in the past, which she found uncomfortable, and has avoided high-impact cardio exercises to prevent aggravation of symptoms. Pain is primarily located on the medial aspect of the foot and heel, sometimes radiating to the back of the leg. The patient has a history of a bone spur identified via X-ray over 15 years ago, which was treated with medication and shockwave therapy at that time. She has not had any recent injuries to the foot or ankle. She denies any other pedal concerns at this time. [facility] Medical History (Updated 08/25/25 @ 08:38 by Marisol Kaur DPM) Calcaneal spur, right foot Plantar fasciitis of right foot Right foot pain Plantar fasciitis Eczema Hx of mammogram (~2024) Bilateral fibroadenomas of breasts Surgical History (Updated 07/31/25 @ 10:22 by Moni Marrero MA) Hx of colonoscopy (~2020) Previous section Hx of cholecystectomy Family History (Updated 07/31/25 @ 10:41 by Moni Marrero MA) Father High cholesterol Lung cancer Paternal Grandmother Diabetes Mother Cardiovascular disease Lung cancer Paternal Grandfather Cardiovascular disease Maternal Grandmother Lung cancer Maternal Grandfather Lung cancer Sister Breast cancer Colon cancer Social History (Updated 07/31/25 @ 10:19 by Moni Marrero MA) Household Members: Spouse and Children Both parents involved: No Caregiver staying overnight: No Housing: House Are you a primary career technical education instructor to a significant other at home: Yes Do you presently have visiting nurse or other home services: No 75 years or older and lives alone: No Alcohol intake: current Alcohol intake frequency: a few times a month Patient Tobacco Use Status: Never used Tobacco e-Cigarette/Vaping Use: Never Used Second Hand Smoke Exposure: No service: No Current occupational status: 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 Denies recent injury to the foot or ankle. All systems reviewed & are unremarkable except as noted in HPI and below Physical Exam Vital Signs: BMI result Body Mass Index 32.6 Extrem Other: Right lower extremity focused physical exam: Derm: No open lesions abrasions or wounds noted. No ecchymosis or discoloration noted. No maceration or hyperkeratotic areas noted. No clinical signs of infection noted. Vascular: DP/PT pulses palpable. Capillary refill time less than 3 seconds. Temperature gradient warm to warm. No varicosities noted. No edema noted. Pedal hair absent. Neuro: Protective sensation is grossly intact. MSK: Pain on palpation to the heel in the area of the medial calcaneal tubercle, slightly to the central aspect of the calcaneus, and to the posterior aspect of the calcaneus in the area of the Achilles insertion point. Negative windlass mechanism. No crepitus or fluctuance noted. No palpable Conley noted. Mildly antalgic gait unassisted noted. Range of motion of the forefoot, hindfoot and ankle within normal limits. MMT 5/5. Results Reviewed Results Reviewed: Ordered right foot x-rays to be performed prior to next visit. Assessment & Plan Assessment & Plan (1) Calcaneal spur, right foot: Code(s): M77.31 - Calcaneal spur, right foot Category: Medical (2) Plantar fasciitis of right foot: Code(s): M72.2 - Plantar fascial fibromatosis Category: Medical (3) Right foot pain: Code(s): M79.671 - Pain in right foot Category: Medical Plan Patient was informed and verbally consented to the use of an ambient scribe for clinic note documentation during this visit. I discussed with the patient the diagnosis of plantar fasciitis and the associated pain due to the plantar fascia and Achilles tendon complex. We reviewed the treatment plan, including the use of Medrol Dosepak, stretching exercises, and the potential use of a night splint. I explained the possibility of a cortisone injection and/or physical therapy if symptoms persist and the surgical options available if conservative measures fail. We also discussed the importance of continuing stretching exercises even after symptom improvement to prevent recurrence. The patient was informed about the need for follow-up in three weeks and the plan to obtain X-rays to assess the bone spur and foot alignment. - Prescribed Medrol Dosepak to reduce inflammation and pain associated with plantar fasciitis. - Recommend continuation of stretching exercises for the plantar fascia and calf muscles. - Provided patient with night splint use to maintain foot dorsiflexion and stretching during rest periods. - Avoid barefoot walking and wear supportive shoe gear. - Ordered x-rays to be performed prior to next visit. - We will consider injection, further imaging, and/or physical therapy if symptoms do not improve. RTC in 3 weeks. Orders: Orders XR foot RT min 3V Today M72.2 - Plantar fascial fibromatosis, M77.31 - Calcaneal spur, right foot, M79.671 - Pain in right foot Medications: New methylprednisolone (Medrol (Ciaran)) PO PER PKG DIR 21 ea 0RF M72.2 - Plantar fascial fibromatosis, M77.31 - Calcaneal spur, right foot, M79.671 - Pain in right foot Coding Level of Care Code New Pt Level 4 (15404) Diagnoses Calcaneal spur, right foot M77.31 Plantar fasciitis of right foot M72.2 Right foot pain M79.671 Time Spent (min) 48
== END 2025-08-25 08:56 | disposition home or self-care (01) ==
LOC: HO.HPODS 08:13
PROVIDERS: PCP Nurse Practitioner Family; Visit Provider Student in an Organized Health Care Education/Training Program
DX: M77.31 Calcaneal spur, right foot (principal); M72.2 Plantar fascial fibromatosis; M79.671 Pain in right foot
CPT/HCPCS: 99204

== ENCOUNTER → 2025-08-25 11:37 | Outpatient (BNV) | payer OTHER, SELFPAY | PROVIDERS: PCP Nurse Practitioner Family; Visit Provider Radiology Diagnostic Radiology | DX: M77.31 Calcaneal spur, right foot (principal) | CPT/HCPCS: 73630 ==

== ENCOUNTER 2025-09-11 14:48 | Outpatient (AMB) | payer OTHER, SELFPAY ==
--- NOTE | 2025-09-11 14:51 | MHC.OFFVIS ---
Vital Signs 09/11/25 15:21 Height 5 ft 3 in Weight 192 lb BMI 34.0 BP 141/67 H Blood Pressure Location Lt brachial Position Sitting Pulse 81 Intake Visit Reasons: Family history neoplasm of breast Intake Note: Patient is seen in office for family history of neoplasm of the breast. Pt c/o: had a bx done on the right breast about 3 yrs ago (benign), feels pressure on the right breast, is currently on hormone replacement therapy due to menopause, has fm hx of breast cancer, sister-age 48, maternal grandmother late 60s and paternal side of the family lung cancer (smokers) mm:11/24/24 Ceramic Designer Required: No Research Compliance Specialist: Research Compliance Specialist Present Accompanied by: Self / Same As Patient Allergies latex Allergy (Verified 09/11/25 15:22) Anaphylaxis morphine Allergy (Verified 09/11/25 15:22) Vomiting Medication List - Last Reconciled 09/11/25 by Bonilla Ravi MD estradiol 1 patch transdermal .twice week methylprednisolone (Medrol (Ciaran)) PO PER PKG DIR HPI Comments Details: 55-year-old female patient seen for high-risk breast cancer evaluation due to a strong family history of breast cancer. The patient's sister was diagnosed with breast cancer in her early 40s and subsequently underwent mastectomy for ductal carcinoma in-situ. She later developed colon cancer in her early 50s required a colectomy followed by chemotherapy due to 4 positive nodes. The patient is maternal grandmother was also diagnosed with breast cancer in her late 60s or early 70s underwent mastectomy as well. She is unaware of genetic testing performed on either her grandmother or sister. Patient reports a previous lumpectomy for fibroadenomas many years ago. She also underwent a needle biopsy for lesion in the right breast upper outer quadrant. Her most recent mammogram dated 11/24/2024 revealed no mammographic evidence of malignancy (BI-RADS 2). Her breast density score was C. menarche was the age of 17 which is 2 para 3 in her 1st child was born when she was 22 years old. She is now perimenopausal on recently started on hormone replacement with both progesterone and estrogen (one-month). She denies a family history of ovarian cancer. She denies Ashkenazi Mosque heritage. [facility] Medical History Calcaneal spur, right foot Plantar fasciitis of right foot Right foot pain Plantar fasciitis Eczema Hx of mammogram (~2024) Bilateral fibroadenomas of breasts Surgical History Hx of colonoscopy (~2020) Previous section Hx of cholecystectomy Family History Father High cholesterol Lung cancer Paternal Grandmother Diabetes Mother Cardiovascular disease Lung cancer Paternal Grandfather Cardiovascular disease Maternal Grandmother Lung cancer Maternal Grandfather Lung cancer Sister Breast cancer Colon cancer Social History Household Members: Spouse and Children Both parents involved: No Caregiver staying overnight: No Housing: House Are you a primary personal care worker to a significant other at home: Yes Do you presently have visiting nurse or other home services: No 75 years or older and lives alone: No Alcohol intake: current Alcohol intake frequency: a few times a month Patient Tobacco Use Status: Never used Tobacco e-Cigarette/Vaping Use: Never Used Second Hand Smoke Exposure: No service: No 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 occupational status: 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 Cognitive needs: No Hearing needs: No Vision needs: No Review of Systems Const All systems reviewed & are unremarkable except as noted in HPI and below Physical Exam Vital Signs: Last Vital Signs Pulse 81 09/11/25 15:21 BP 141/67 H 09/11/25 15:21 BMI result Body Mass Index 34.0 Const General: cooperative and no acute distress Nutritional Appearance: well nourished Orientation/consciousness: patient oriented x3 Limitations: no limitations HEENT Head: Yes normocephalic and Yes atraumatic Ears: hearing grossly normal bilaterally Chest Other: Left breast: No skin change, no nipple retraction, no nipple discharge, no palpable mass, no enlarged lymph nodes. Right breast: No skin change, no nipple retraction, no nipple discharge, no palpable mass, no enlarged lymph nodes. Resp Effort & Inspection: normal respiratory effort, no audible wheezes, no cough and no respiratory distress Cardio Jugular venous distension: no JVD GI Inspection: Yes normal to inspection Skin Other: Warm, dry, no rash Neuro General: patient oriented x3 Extrem General: Yes no clubbing, cyanosis or edema Assessment & Plan Assessment & Plan (1) Family history of breast cancer: Comment: sister Code(s): Z80.3 - Family history of malignant neoplasm of breast Category: Medical (2) Family history of colon cancer: Comment: sister Code(s): Z80.0 - Family history of malignant neoplasm of digestive organs Category: Medical Plan 55-year-old female patient with a strong family history of breast cancer in both her sister and maternal grandmother presenting for high-risk breast evaluation. She denies any current breast symptoms but has had several biopsies in the past which were all benign. She is perimenopausal recently started hormone replacement therapy with both estrogen and progesterone. Examination today revealed no suspicious findings in either breast and her most recent mammogram of 11/24/2024 revealed no mammographic evidence of malignancy (BI-RADS 2). We discussed genetic testing including the risks and benefits. She wishes to proceed with the genetic testing which was performed today. I calculated a Tyrer-Cuzick remaining lifetime risk of breast cancer at 31.3% which would place her at high risk for breast cancer. She will return in approximately 5 weeks to review the genetic testing results. She expressed understanding and agrees with the plan. Coding Level of Care Code New Pt Level 4 (60609) Diagnoses Family history of breast cancer Z80.3 Family history of colon cancer Z80.0
[2025-09-11 15:21] VITALS: BP 141/67; PULSE 81; BMI 34.0
--- OUTSIDE RECORDS SUMMARY | 2025-09-11 19:38 | XMS_ITS | Clinical Summary ---
Author Organization [facility] Address [address] [place] [phone] Phone Care Team Providers Care Drag Out Man Name Role Phone Bettina Lutz NP Primary Care Provider [phone] Allergies Active Allergy Reactions Criticality Noted Date [...] SEE NARRATIVE - 06/26/2020 4:23 PM EDT [address] [address] Certification Officer: Caroline Palencia MD SSIS ETL DEVELOPER Cytology Report FINAL DIAGNOSIS A. PAP SMEAR [...] : 1970 (Age: 49) Sex: F Institution: [facility] Location: [facility] Date of Collection: 06/18/2020 Date of Reported: 06/26/2020 16:23 Results to: Reji Lara MD us Reji Lara MD CYTOLOGY ORDERABLES Final Resul t SEE NARRATIVE from Last 3 Months or Most Recently Relevant to Health Maintenance Insurance [address] [place] [address] [place] [address] [place] [address] [place] [address] [place] [place] [address] [address] PPO [employer] Care Teams Drag Out Man Relationship Specialty Start Date End Date Bettina Lutz NP [address] [place] [id number] PCP - General 04/25/20 Additional Source Comments The information contained in this document represents components of the legal health record. It is not the complete legal health record.[facility]
== END 2025-09-11 15:56 | disposition home or self-care (01) ==
LOC: HO.HGS 14:49
PROVIDERS: PCP Nurse Practitioner Family; Visit Provider Surgery
DX: Z80.3 Family history of malignant neoplasm of breast (principal); Z80.0 Family history of malignant neoplasm of digestive organs
CPT/HCPCS: 99204

== ENCOUNTER 2025-09-13 08:07 | Outpatient (AMB) | payer OTHER, SELFPAY ==
--- OUTSIDE RECORDS SUMMARY | 2025-09-13 08:18 | XMS_ITS | Patient Health Record ---
[facility] Address [address] [place] [address] Care Team Providers Care Motor Transport Inspector Name Role Phone Renard Hennessy Primary Care Provider UnavailOdilia Nieto Unavailable [phone] Renard Hennessy Unavailable Unavailable Allergies Allergen (clinical [...] Insured Coverage Start Date Coverage End Date [facility] [address] [place], [place] [address] [address] [id number] Caroline Frias Self - patient is the insured Medical (General) History Medical History History ICD Code Measles Mumps Chicken pox Surgical History Surgery Date(Month/Year) 1999,2001 Tumor removal breast 1998
--- OUTSIDE RECORDS SUMMARY | 2025-09-13 08:18 | XMS_ITS | Clinical Summary ---
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 PAP SMEAR [...] (Age: 49) Sex: F Institution: [facility] Location: [facility] Date of Collection: 06/18/2020 Date of Reported: 06/26/2020 16:23 Results to: Reji Lara MD us Reji Lara MD CYTOLOGY ORDERABLES Final Resul t SEE NARRATIVE from Last 3 Months or Most Recently Relevant to Health Maintenance [place] [address] [address] [place] [address] [place], [place] [address] [place] [place] [address] [place] [place] [address] [place] [place] [address] [place] [address] PPO [employer] Care Teams Hvac Sales Representative Relationship Specialty Start Date End Date Bettina Lutz NP [address] [place] [id number] PCP - General 04/25/20 Additional Source Comments The information contained in this document represents components of the legal health record. It is not the complete legal health record.[facility]
--- NOTE | 2025-09-13 08:20 | A.OFFVIS_ITS ---
Vital Signs 09/13/25 08:21 Height 5 ft 3 in Weight 192 lb BMI 34.0 Intake Visit Reasons: f/u xrays - right plantar fasciitis Intake Note: Caroline is a 55 year old female here for a follow up for her right plantar fasciitis. X-rays were ordered at last visit and are in patients chart. Patient was prescribed Medrol Dosepak to reduce inflammation and pain associated with plantar fasciitis. Provider recommend continuation of stretching exercises for the plantar fascia and calf muscles. Provided patient with night splint use to maintain foot dorsiflexion and stretching during rest periods. Injection, further imaging, and/or physical therapy will be considered if symptoms do not improve. Patient reports she utilizes the night splint as tolerated,she has completed her medrol dose ciaran, and she has been performing the stretching exercises. She finds that the medication has helped however after completing the med her pain has returned. Allergies latex Allergy (Verified 09/13/25 08:22) Anaphylaxis morphine Allergy (Verified 09/13/25 08:22) Vomiting HPI Comments Details: The patient is a 55 year old individual presenting for a follow up of right foot plantar fasciitis. The patient reports the pain is currently a 7-8/10, with a baseline of 6-7/10, and it worsens at the end of a 12-hour shift. Previous treatments included night splints and a Medrol Dosepak which provided some relief at the time. Patient denies any new pedal injuries. She denies any other pedal concerns. [facility] Medical History Calcaneal spur, right foot Plantar fasciitis of right foot Right foot pain Plantar fasciitis Eczema Hx of mammogram (~2024) Bilateral fibroadenomas of breasts Surgical History Hx of colonoscopy (~2020) Previous section Hx of cholecystectomy Family History Father High cholesterol Lung cancer Paternal Grandmother Diabetes Mother Cardiovascular disease Lung cancer Paternal Grandfather Cardiovascular disease Maternal Grandmother Lung cancer Maternal Grandfather Lung cancer Sister Breast cancer Colon cancer Social History Household Members: Spouse and Children Both parents involved: No Caregiver staying overnight: No Housing: House Are you a primary child care associate teacher to a significant other at home: Yes Do you presently have visiting nurse or other home services: No 75 years or older and lives alone: No Alcohol intake: current Alcohol intake frequency: a few times a month Patient Tobacco Use Status: Never used Tobacco e-Cigarette/Vaping Use: Never Used Second Hand Smoke Exposure: No service: No Current occupational status: 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 All systems reviewed & are unremarkable except as noted in HPI and below Physical Exam Vital Signs: BMI result Body Mass Index 34.0 Extrem Other: Right lower extremity focused physical exam: Derm: No open lesions abrasions or wounds noted. No ecchymosis or discoloration noted. No maceration or hyperkeratotic areas noted. No clinical signs of infection noted. Vascular: DP/PT pulses palpable. Capillary refill time less than 3 seconds. Temperature gradient warm to warm. No varicosities noted. No edema noted. Pedal hair absent. Neuro: Protective sensation is grossly intact. MSK: Pain on palpation to the heel in the area of the medial calcaneal tubercle, slightly to the central aspect of the calcaneus, and reduced pain to the p osterior aspect of the calcaneus in the area of the Achilles insertion point. Negative windlass mechanism. No crepitus or fluctuance noted. No palpable [place] noted. Mildly antalgic gait unassisted noted. Range of motion of the forefoot, hindfoot and ankle within normal limits. MMT 5/5. Office Procedures AMB Flexor Tendon/Plantar POD Tendon Injection Details of AMB Procedure: Procedure: Right foot plantar fascia injection: Patient identified the most painful aspect of the right heel which was marked prior to injection. Next, cleansed the affected area with an alcohol. Next injected 1.5 cc of lidocaine plain, 1 cc of dexamethasone, and 0.5 cc of triamcinolone to the affected area with no incidents. A band-aid was applied to the area. Provided patient with after care instructions. Tendon Injection POD1: - Plantar Fascia Injection All charges added?: Procedure code (CPT) selection complete Office Meds triamcinolone acetonide 40 mg/mL suspension for injection Performing Provider: Marisol Kaur DPM Performing Location: [facility] Administered by: Marisol Kaur DPM on 09/18/25 12:42 Dose Route Admin Location Dispensed Lot Number Expiration Date [facility] Pilot Can Router 20 mg Tendon Sheath Inj. 1 mL [id number] [employer] Total Dispensed Waste 1 mL 50 % dexamethasone sodium phosphate 4 mg/mL injection solution Performing Provider: Marisol Kaur DPM Performing Location: [facility] Administered by: Marisol Kaur DPM on 09/18/25 12:42 Dose Route Admin Location Dispensed Lot Number Expiration Date [facility] Pilot [employer] Router 4 mg Tendon Sheath Inj. 1 mL [id number] [employer] Total Dispensed Waste 1 mL 0 % lidocaine HCl 10 mg/mL (1 %) injection solution Performing Provider: Marisol Kaur DPM Performing Location: [facility] Administered by: Marisol Kaur DPM on 09/18/25 12:42 Dose Route Admin Location Dispensed Lot Number Expiration Date [facility] [employer] 1.5 mL subcut 1.5 mL [id number] Total Dispensed Waste 1.5 mL 0 % Results Reviewed Results Reviewed: Podiatry read of right foot x-ray (08/25/2025): Os peroneum noted. 1st MPJ mild joint space narrowing. Calcaneal spurs noted plantaraly and posteriorly. Cornuate navicular noted. No acute fractures or dislocations noted. Mild osteophyte formation noted to the midfoot. Right foot x-ray (08/25/2025): FINDINGS: No fracture, dislocation, or suspicious bone lesion. Normal bone mineralization. Normal alignment. There is a normal plantar arch. Joint spaces are preserved. No significant arthropathy. There is an os peroneum. There are moderate-sized plantar and dorsal calcaneal spurs. Soft tissues appear normal. IMPRESSION: 1. No acute bony or soft tissue abnormality of the right foot. 2. Moderate-sized plantar and dorsal calcaneal spurs. Assessment & Plan Assessment & Plan (1) Right foot pain: Code(s): M79.671 - Pain in right foot Category: Medical (2) Plantar fasciitis of right foot: Code(s): M72.2 - Plantar fascial fibromatosis Category: Medical (3) Calcaneal spur, right foot: Code(s): M77.31 - Calcaneal spur, right foot Category: Medical Plan Patient was informed and verbally consented to the use of an ambient scribe for clinic note documentation during this visit. I discussed the plan to manage the patient's plantar fasciitis, which included a cortisone injection administered today. I prescribed meloxicam to be taken once daily to help manage inflammation and pain. We reviewed the finding of a heel spur, which I explained is a result of the plantar fasciitis tugging on the bone and that it does not resolve without surgery. I noted that while surgical intervention is an option for chronic cases, it is not the current plan. I informed the patient that the effectiveness of cortisone varies, and we should limit injections to no more than three per year to prevent tendon and ligament weakening. I placed a referral for physical therapy. A follow-up visit is scheduled in six weeks to evaluate the patient's progress. - Administered a cortisone injection to the right heel. - Prescribed meloxicam for pain. - Provided referral for physical therapy. - Recommend continuation of stretching exercises for the plantar fascia and calf muscles. - Continue use of night splint use to maintain foot dorsiflexion and stretching during rest periods. - Avoid barefoot walking and wear supportive shoe gear. RTC in 6 weeks. Orders: Orders PT Evaluation and Treatment 09/13/25 M72.2 - Plantar fascial fibromatosis, M77.31 - Calcaneal spur, right foot, M79.671 - Pain in right foot AMB Flexor Tendon / Plantar Fascia Injection 09/13/25 M72.2 - Plantar fascial fibromatosis, M77.31 - Calcaneal spur, right foot, M79.671 - Pain in right foot Medications: New meloxicam 15 mg PO DAILY 30 tabs 0RF M72.2 - Plantar fascial fibromatosis, M77.31 - Calcaneal spur, right foot, M79.671 - Pain in right foot Discontinued methylprednisolone (Medrol (Ciaran)) Discontinued Reason: Patient Completed Course PO PER PKG DIR 21 ea 0RF M72.2 - Plantar fascial fibromatosis, M77.31 - Calcaneal spur, right foot, M79.671 - Pain in right foot Coding Level of Care Code Est Pt Level 4 (44597) Diagnoses Right foot pain M79.671 Plantar fasciitis of right foot M72.2 Calcaneal spur, right foot M77.31 CPT Codes Tendon Injection - Tendon Injection POD1: - Plantar Fascia Injection ([id number]) Time Spent (min) 36 Comment 5 mins for procedure
[2025-09-13 08:21] VITALS: BMI 34.0
== END 2025-09-13 08:41 | disposition home or self-care (01) ==
LOC: HO.HPODS 08:08
PROVIDERS: PCP Nurse Practitioner Family; Visit Provider Student in an Organized Health Care Education/Training Program
DX: M79.671 Pain in right foot (principal); M77.31 Calcaneal spur, right foot; M72.2 Plantar fascial fibromatosis
CPT/HCPCS: 20550; 99214

== ENCOUNTER → 2025-09-13 08:07 | Outpatient (BNVA) | payer OTHER, SELFPAY | PROVIDERS: PCP Nurse Practitioner Family; Visit Provider Student in an Organized Health Care Education/Training Program | DX: M79.671 Pain in right foot (principal); M72.2 Plantar fascial fibromatosis; M77.31 Calcaneal spur, right foot | CPT/HCPCS: 20550; J1100; J2003; J3301 ==